=== PATIENT | male | born 1990 | race Caucasian/White ===

== ENCOUNTER 2021-01-14 17:44 | Emergency (ER) | payer MEDICAID, SELFPAY ==
[2021-01-14 18:00] VITALS: BP 129/81; PULSE 74; RESP 15; TEMP 36.3; O2SAT 97; BMI 28.7
--- NOTE | 2021-01-14 18:26 | ED_ITS ---
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 Onset (ago): minute(s) Extremity Location: Right: hand (2. And 3 finger avulsion) Place: home Patient tetanus UTD: No Context: accidental Associated symptoms: Reports no associated symptoms; Denies chills or fever(s) Review of Systems Const: Denies: fever(s) or chills Skin/Breast: Reports: other (Avulsion of skin on fingers due to use of incinerator plant laborer) Psych: Denies: anxiety or depression [facility] ED PFSH: Social History (Updated 01/14/21 @ 18:04 by Frank Gray RN) Smoking and tobacco status: light tobacco smoker cigarettes Alcohol intake: current Alcohol intake frequency: holidays/special occasions only Substance/Drug Use: never Physical Exam Const: COMMON NORMALS: no acute distress Psych: COMMON NORMALS: mental status grossly normal Skin: OTHER: Patient has a 1 x1 centimeter P skin avulsion right middle finger that is gone on the palmar surface and at the tip of index finger prior 3 mils by 3 mm skin is gone also no other injuries noted Surgicel Telfa and dressing with Coban applied Course Vital Signs: Vital signs: Vital Signs Temperature 97.3 F L 01/14/21 18:00 Pulse Rate 74 01/14/21 18:00 Respiratory Rate 15 01/14/21 18:00 Blood Pressure 129/81 01/14/21 18:00 Pulse Oximetry 97 01/14/21 18:00 Discharge Plan Discharge Patient Disposition: Home Clinical Impression: Avulsion of skin Condition: Stable Discharge Orders: Discharge ED (Routine); Ordered 01/14/21 Ordered By: Lyndon Anderson Discharge Diet: Usual diet Discharge Activity: Resume usual activity Patient Instructions: Skin Avulsion (ED) Activity Restrictions/Additional Instructions: Watch for signs of infection. Change dressing daily. Make sure to use a nonstick dressing. Follow-up your family medical provider if no improvement or worsening symptoms noted. Coding Level of Care Code ED Business Integration Analyst for Femi Deleon
[2021-01-14 18:50] VITALS: BP 117/74; PULSE 60; RESP 14; O2SAT 99
[2021-01-14] MEDS: tetanus-dipt-pertussis 0.5 mL SDV IM (18:55)
== END 2021-01-14 19:02 | disposition home or self-care (01) ==
PROVIDERS: Emergency Provider Nurse Practitioner Family
DX: S61.202A Unspecified open wound of right middle finger without damage to nail, initial encounter (principal); S61.200A Unspecified open wound of right index finger without damage to nail, initial encounter; W26.0XXA Contact with knife, initial encounter; F17.210 Nicotine dependence, cigarettes, uncomplicated; Z23 Encounter for immunization
CPT/HCPCS: 90471; 90715; 99282

== ENCOUNTER → 2022-07-29 10:26 | Outpatient (BNVA) | payer MEDICAID, SELFPAY | PROVIDERS: PCP Family Medicine; Visit Provider Registered Nurse Neonatal Intensive Care | DX: J02.9 Acute pharyngitis, unspecified (principal); J06.9 Acute upper respiratory infection, unspecified | CPT/HCPCS: 87880 ==